=== PATIENT | female | born 1955 | race Caucasian/White ===

== ENCOUNTER 2020-12-11 16:49 | Emergency (ER) | payer MEDICARE, OTHER ==
[2020-12-11 17:10] VITALS: BP 163/89; PULSE 66; RESP 20; TEMP 98.1
--- NOTE | 2020-12-11 17:31 | ED ---
General Adult HPI - General Chief complaint: Extremity Injury, Upper Stated complaint: R Thumb Injury Time Seen by Provider: 12/11/20 17:28 Source: patient Mode of arrival: ambulatory Limitations: no limitations - History of Present Illness Initial comments: Patient presents to the ED with her partner for evaluation. Patient states that she injured her right thumb attempting to open her window about 3-1/2 hours ago today. Patient is complaining of having diffuse right thumb pain. Patient denies any other injury or site of pain. Patient denies dyspnea, dizziness, focal neuro deficit, or any other symptoms or complaints. - Related Data Allergies Allergy/AdvReac Type Severity Reaction Status Date / Time codeine Allergy Rash/Hives Verified 12/11/20 17:10 Penicillins Allergy Rash/Hives Verified 12/11/20 17:10 Review of Systems ROS Statement: Those systems with pertinent positive or pertinent negative responses have been documented in the HPI. ROS Other: All systems not noted in ROS Statement are negative. Past Medical History Past Medical History: No Reported History History of Any Multi-Drug Resistant Organisms: None Reported Past Surgical History: No Surgical Hx Reported Smoking Status: Current every day smoker Past Alcohol Use History: None Reported Past Drug Use History: Marijuana General Exam Limitations: no limitations General appearance: alert, in no apparent distress Head exam: Present: atraumatic, normocephalic Eye exam: Present: normal appearance, EOMI ENT exam: Present: mucous membranes moist Respiratory exam: Present: normal lung sounds bilaterally. Absent: respiratory distress, wheezes, rales, rhonchi, stridor Cardiovascular Exam: Present: regular rate, normal rhythm, normal heart sounds, other (Normal radial pulses bilaterally) Extremities exam: Present: other (Diffuse right thumb ecchymosis and tenderness; right thumb is neurovascularly intact) Neurological exam: Present: alert, oriented X3. Absent: motor sensory deficit Psychiatric exam: Present: normal affect, normal mood Skin exam: Present: warm, dry, intact Course Vital Signs 12/11/20 17:06 Temperature 98.1 F Pulse Rate 66 Respiratory 20 Rate Blood Pressure 163/89 O2 Sat by Pulse 98 Oximetry Medical Decision Making - Medical Decision Making Patient's right hand x-rays are negative. Patient has no evidence of right thumb fracture on x-ray. I suspect that the patient's right thumb pain is likely secondary to a sprain. Patient was counseled about thumb sprains (rest, ice, elevation, analgesics). Patient was clearly explained return and follow-up instructions, and she feels comfortable with this plan. Patient was instructed to follow up closely with her primary care provider. - Radiology Data Radiology results: report reviewed (Right hand x-rays: Osteoarthritis at the base of the thumb. No fracture seen.) Disposition Clinical Impression: Sprain of right thumb Disposition: HOME SELF-CARE Condition: Stable Instructions (If sedation given, give patient instructions): Finger Sprain (ED) Additional Instructions: Return to the ER if you develop new or worsening pain or symptoms. Follow up closely with your primary care provider. Is patient prescribed a controlled substance at d/c from ED?: No Referrals: None,Stated [Primary Care Provider] - 1-2 days Paul Yost MD [REFERRING] - 1-2 days Time of Disposition: 18:02
--- NOTE | 2020-12-11 17:54 | XR ---
EXAMINATION TYPE: XR hand complete RT DATE OF EXAM: 12/11/2020 COMPARISON: NONE HISTORY: Thumb injury TECHNIQUE: 3 views FINDINGS: There is moderate hypertrophic osteoarthritis at the first carpometacarpal joint. I see no acute fracture nor dislocation. The carpal bones are intact. Radiocarpal joint is intact. IMPRESSION: Osteoarthritis at the base of the thumb. No fracture seen.
== END 2020-12-11 18:04 | disposition home or self-care (01) ==
LOC: EC 16:49
DX: S63.601A Unspecified sprain of right thumb, initial encounter (principal); F17.200 Nicotine dependence, unspecified, uncomplicated; F12.90 Cannabis use, unspecified, uncomplicated; Z88.0 Allergy status to penicillin; Z88.5 Allergy status to narcotic agent; W22.09XA Striking against other stationary object, initial encounter
CPT/HCPCS: 99283

== ENCOUNTER → 2023-08-17 | Outpatient (CLI) | payer MEDICARE, OTHER ==
--- NOTE | 2023-08-19 16:20 | BD ---
EXAMINATION TYPE: Axial Bone Density DATE OF EXAM: 08/17/2023 CLINICAL HISTORY: 68 years old Female. ICD-10 CODE: [id number] FOR OSTEP AND Z78.0 ASYST. MONO STAT E Height: 61.5" Weight: 108lbs FRAX RISK QUESTIONS: Alcohol (3 or more units per day): No Family History (Parent hip fracture): No Glucocorticoids (More than 3mos): Recent steroid infusions only this week, not long-term (Ex: prednisone, prednisolone, methylprednisolone, dexamethasone, and hydrocortisone). History of Fracture in Adulthood: Yes Secondary Osteoporosis: 1. Type 1 Diabetes: No 2. Hyperthyroidism: No 3. Menopause before 45: No 4. Malnutrition: No 5. Chronic liver disease: No Rheumatoid Arthritis: No Current Tobacco Use: Yes RISK FACTORS HISTORY OF: Hip Fracture (Right/Left): No Spine Fracture: No History of Wrist Fracture: No Surgery to Spine/Hip(right/left)/Wrist (right/left): No MEDICATIONS: Thyroid Medications: No Osteoporosis Medications: No EXAM MEASUREMENTS: Bone mineral densitometry was performed using the EndoShape System. Bone mineral density as measured about the Lumbar spine is: ----- L1-L4(G/cm2): 0.765 T Score Values are as follows: ----- L1: -3.4 ----- L2: -3.7 ----- L3: -3.0 ----- L4: -3.9 ----- L1-L4: -3.5 Z Score Values are as follows: ----- L1: -1.2 ----- L2: -1.5 ----- L3: -0.8 ----- L4: -1.7 ----- L1-L4: -1.3 Baseline @MPH Bone mineral density about the R hip (g/cm2): 0.539 Bone mineral density about the L hip (g/cm2): 0.618 T Score values are as follows: -----R Neck: -2.0 -----L Neck: -2.1 -----R Total: -3.7 -----L Total: -3.1 Z Score values are as follows: -----R Neck: 0.0 -----L Neck: -0.1 -----R Total: -1.9 -----L Total: -1.3 Baseline @MPH FRAX%s: The graph provided illustrates a 11.7% chance for a major osteoporotic fx and a 3.9% chance f or the hips probability for fx in 10 years time. IMPRESSION: Osteoporosis (T Score less than -2.5). There is increased fracture risk and therapy is usually indicated based on age. Re-Screen 1-2 years. NOTE: T-SCORE=SD OF THE YOUNG ADULT MEAN.
--- NOTE | 2023-08-23 15:03 | MM ---
Reason for Exam: Screening (asymptomatic). Patient History: Menarche at age 14. First Full-Term at age 18. Postmenopausal. Sister had ovarian cancer. Sister had ovarian cancer at or over age 50. Risk Values: Gale 5 year model risk: 1.1%. NCI Lifetime model risk: 3.5%. Tissue Density: The breasts are extremely dense, which lowers the sensitivity of mammography. Findings: Analyzed By CAD. Pattern appears stable Post lumpectomy changes are in the upper outer left breast. There are some benign-appearing calcifications within the right breast. Follow-up however is recommended. No suspicious groups of microcalcifications, spiculated or lobular masses, architectural distortion or other secondary signs of malignancy are mammographically apparent.The pattern is symmetrical. Benign calcifications are present bilaterally. No suspicious groups of microcalcifications, spiculated or lobular masses, architectural distortion or other secondary signs of malignancy are mammographically apparent. Overall Assessment: Benign, BI-RAD 2 Management: Screening Mammogram of both breasts in 1 year. A negative mammogram report should not preclude additional follow up of suspicious palpable abnormalities. Patient should continue monthly self breast exam. A clinical breast exam by your physician is recommended on an annual basis and results should be correlated with mammographic findings. Note on Gale scores and lifetime risk: 1. A Gale score greater than 3% is considered moderate risk. If this is the case, consider specialist referral to assess eligibility for a risk reducing agent. 2. If overall lifetime risk for the development of breast cancer is 20% or higher, the patient may qualify for future screening with alternating mammogram and breast MRI. Electronically signed and approved by: Haim Bowser D.O. Radiologis
== END | disposition home or self-care (01) ==
LOC: RADMAMWWP 13:05
PROVIDERS: ATTEND Family Medicine
DX: Z12.31 Encounter for screening mammogram for malignant neoplasm of breast (principal); M81.0 Age-related osteoporosis without current pathological fracture; M85.89 Other specified disorders of bone density and structure, multiple sites; Z78.0 Asymptomatic menopausal state; Z80.41 Family history of malignant neoplasm of ovary
CPT/HCPCS: 77067; 77080

== ENCOUNTER → 2023-10-16 | Outpatient (CLI) | payer MEDICARE, OTHER | LOC: CPPFTMAIN 16:11 | PROVIDERS: ATTEND Family Medicine | DX: Z87.09 Personal history of other diseases of the respiratory system | CPT/HCPCS: 94060; 94726; 94729 ==

== ENCOUNTER → 2024-09-02 | Day surgery (SDC) | payer MEDICARE, OTHER ==
[2024-09-02] MEDS: GLUCAGON 1 MG/ML VIAL IM STA (11:16)
[2024-09-02 11:31] VITALS: BP 109/91; PULSE 62; RESP 16; TEMP 97.9
--- NOTE | 2024-09-05 18:40 | MR ---
EXAMINATION TYPE: MR Enterography DATE OF EXAM: 09/02/2024 12:04 PM COMPARISON: CT abdomen and pelvis outside institution 07/04/2024 CLINICAL INDICATION: Female, 69 years old with history of R93.89 ABNORMAL FINDINGS ON DX IMAGING OF O TH BODY, Abnormal CT IV Contrast: 10 cc Gadobutrol CONTRAST: Standard multiplanar, multisequence imaging of the abdomen is performed without and with IV contrast, patient is injected with 10 mL intravenous Gadobutrol gadolinium contrast. Oral Breeza was given as per enterography protocol. TECHNIQUE: Multiplanar multi-sequence imaging was performed through the abdomen and pelvis prior to a nd following the administration of 10 cc of Gadobutrol IV contrast. Prior to the examination, the pa tient was given oral contrast, Breeza 1500 cc. In addition, the patient was given a split dose of 1 m g IV glucagon prior to the study and prior to IV gadolinium. Limited examination due to patient cough ing fit in and out of the scan the third 90 second time point. FINDINGS: LOWER CHEST: No significant findings. ABDOMEN Bowel: Moderate gastric distention without obstruction. The small bowel distention is inadequate prox imally. No definite evidence to suggest abnormal bowel wall thickening involving the small bowel. Th is is seen small bowel wall thickening has resolved. No evidence of bowel obstruction. No evidence fo r mucosal hyperenhancement, stricture or fistulous tract formation. Distal colonic diverticulosis wit hout evidence for acute diverticulitis. Chronic-appearing wall thickening of the sigmoid colon probab ly related to prior bouts of diverticulitis. No surrounding inflammatory changes. Peritoneum: No evidence of pneumoperitoneum, free fluid, or adenopathy. Liver: A few scattered punctate T2 hyperintense cysts. Gallbladder and Bile ducts: Unremarkable. Pancreas: Unremarkable. Spleen: Unremarkable. Adrenal glands: Unremarkable. Kidneys: No hydronephrosis. Left inferior renal pole T2 hyperintense cortical cyst. Bladder: Unremarkable. Reproductive: Unremarkable. Vasculature: Unremarkable. No aortic aneurysm. Musculoskeletal: The osseous structures appear intact. Abdominal wall: Unremarkable. IMPRESSION: 1. No evidence for active bowel disease. Improvement in previously demonstrated small bowel wall thic kening. 2. Distal colonic diverticulosis without evidence for acute diverticulitis. Wall thickening of the si gmoid colon likely related to chronic diverticulitis. [facility], , 09/05/2024 6:37 PM
== END ==
LOC: RADMRIMAIN 09:23
PROVIDERS: ATTEND Internal Medicine Gastroenterology
DX: K57.30 Diverticulosis of large intestine without perforation or abscess without bleeding (principal)
CPT/HCPCS: 96372; 72197; 74183; J1610; A9585